=== PATIENT | male | born 1995 | race Caucasian/White ===

== ENCOUNTER 2021-05-06 17:17 | Emergency (ER) | payer BC ==
[2021-05-06] MEDS ORDERED: Amoxicillin/Potassium Clav 875 MG TAB ONE (17:39)
[2021-05-06] MEDS ORDERED: Bacitracin 1 PK ONE (17:39)
== END 2021-05-06 17:44 | disposition home or self-care (01) ==
LOC: BURERS 17:17
DX: S51.851A Open bite of right forearm, initial encounter (principal); S51.811A Laceration without foreign body of right forearm, initial encounter; W54.0XXA Bitten by dog, initial encounter
CPT/HCPCS: 99283

== ENCOUNTER 2023-04-09 10:55 | Emergency (ER) | payer BC | END 2023-04-09 11:26 | disposition home or self-care (01) | LOC: BURERS 10:55 | DX: S60.222A Contusion of left hand, initial encounter (principal); W19.XXXA Unspecified fall, initial encounter; Y93.61 Activity, american tackle football ==